=== PATIENT | male | born 1965 | race Caucasian/White ===

== ENCOUNTER → 2023-11-12 | Outpatient (CLI) | payer OTHER | LOC: LAB SHORT 08:05 → LAB 08:05 | DX: D48.5 Neoplasm of uncertain behavior of skin (principal) | CPT/HCPCS: 88305 ==

== ENCOUNTER 2024-06-24 15:07 | Emergency (ER) | payer SELFPAY ==
[~2024-06-24] VITALS: Ht 170.2 cm; Wt 88.5 kg
[2024-06-24] MEDS ORDERED: Fluorescein Sod 1MG Opth Strips RIGHTEYE ONE (16:10)
[2024-06-24] MEDS ORDERED: Tetracaine HCl/Pf 0.5% Opth Soln 4 ml RIGHTEYE ONE (16:10)
[2024-06-24] MEDS ORDERED: Diphth,Pertuss(Acell),Tet Vac 0.5 ML VIAL IM ONE (16:50)
[2024-06-24] MEDS ORDERED: ERYT.5TO RIGHTEYE (16:51)
== END 2024-06-24 17:13 | disposition home or self-care (01) ==
LOC: ER 15:07
DX: T15.01XA Foreign body in cornea, right eye, initial encounter (principal); E11.9 Type 2 diabetes mellitus without complications; M10.9 Gout, unspecified; Z91.030 Bee allergy status; W44.E9XA Other non-magnetic metal objects entering into or through a natural orifice, initial encounter
CPT/HCPCS: 65220; 90471; 90715; 99282-25; A9270

== ENCOUNTER 2024-12-08 01:37 | Day surgery (SDC) | payer SELFPAY ==
[~2024-12-08 01:37] MED LIST: ERYT.5TO RIGHTEYE
[2024-12-08 15:23] VITALS: BP 147/94
[2024-12-08] MEDS ORDERED: COLCHICINE0.6 MG PO (15:35)
[2024-12-08] MEDS ORDERED: METFORMIN ER1000 M2 PO (15:36)
== END 2024-12-08 15:40 | disposition home or self-care (01) ==
LOC: ATC 01:37
DX: R33.8 Other retention of urine (principal); E11.9 Type 2 diabetes mellitus without complications; M10.9 Gout, unspecified; Z87.891 Personal history of nicotine dependence; Z79.84 Long term (current) use of oral hypoglycemic drugs; Z79.899 Other long term (current) drug therapy; Z91.030 Bee allergy status; Z88.6 Allergy status to analgesic agent
CPT/HCPCS: 51798